=== PATIENT | male | born 1985 | race African-American/Black ===

== ENCOUNTER 2017-12-24 05:41 | Emergency (ER) | payer BC, SELFPAY ==
[2017-12-24] MEDS ORDERED: Triamcinolone 40 MG/ML VIAL ONE (06:10)
[2017-12-24] MEDS ORDERED: predniSONE 20 MG TAB ONE (06:11)
== END 2017-12-24 06:24 | disposition home or self-care (01) ==
LOC: SCSER 05:41
DX: L85.8 Other specified epidermal thickening (principal)
CPT/HCPCS: 99282; J3301; J7506

== ENCOUNTER 2018-06-12 08:16 | Emergency (ER) | payer SELFPAY | END 2018-06-12 08:51 | disposition home or self-care (01) | LOC: SCSER 08:16 | DX: G62.9 Polyneuropathy, unspecified (principal) | CPT/HCPCS: 99283 ==